=== PATIENT | female | born 1980 | race Caucasian/White ===

== ENCOUNTER 2025-03-26 15:00 | Emergency (ER) | payer BC, SELFPAY ==
[2025-03-26 15:01] VITALS: BP 166/98
[2025-03-26 15:15] LABS: Hematocrit 37.7 % (37.0-47.0); Hemoglobin 13.1 g/dL (12.0-16.0); Mean Corp Hgb Conc. 34.7 g/dL (33.0-37.0); Mean Corpuscular Volume 82.9 fL (81.0-99.0); Nucleated Red Blood Cells % 0 %; Platelet Count 167 10^3/uL (130-400); Red Cell Dist. Width 11.9 % (11.5-14.5)
[2025-03-26 15:32] LABS: ALT (SGPT) 22 U/L (0-35); AST (SGOT) 24 U/L (14-36); Albumin 4.0 g/dl (3.5-5.0); Alkaline Phosphatase 64 U/L (38-126); Blood Urea Nitrogen 14 mg/dl (7-17); Calcium 9.0 mg/dl (8.4-10.2); Carbon Dioxide 25 mmol/L (22-30); Chloride 108 mmol/L (98-107); Glucose 126 mg/dl (70-99); Potassium 3.8 mmol/L (3.5-5.1); Sodium 139 mmol/L (135-145); Total Protein 6.8 g/dl (6.3-8.2); eGFR > 60.00
[2025-03-26 16:05] VITALS: BP 162/101
--- NOTE | 2025-03-26 16:19 | ED.GENMED ---
History of Present Illness
General
Chief Complaint: Dizziness
Time Seen by Provider: 03/26/25 16:04
Nursing documentation reviewed up to this point in time: agreed with
History of Present Illness
History of Present Illness:
45-year-old female presents to the ER via EMS for evaluation after near syncopal event that occurred after lunch today. Patient states that she had a turkey rosenbaum sandwich with her family. She started to feel unwell while they were still seated at
the table. She describes a feeling of racing heartbeat and that she was going to faint. She states that she saw her family physician yesterday because she has been experiencing difficulty with dyspepsia and belching after eating. Multiple family
members have had to have her gallbladder out including her brother.
Phy Exam
Physical Exam
Physical Exam:
Patient is awake, alert, appears in no acute distress, head is NCAT, PERRL, EOMI mucous membranes moist, conjunctiva pink, sclera anicteric, heart regular rate and rhythm without murmurs or ectopy, lungs are clear to auscultation without wheezes
rales or rhonchi, no JVD, abdomen is soft and nontender on palpation, extremities without edema, 2+ DP pulses present symmetric bilateral feet GCS is 15
Course
Orders/Labs/Results
Orders:
Orders
03/26/25 15:04
EKG [Electrocardiogram (*1)] Urgent
Reason for Study: Palpitations
03/26/25 15:05
EKG- Treatment ONCE
03/26/25 15:07
Complete Blood Count/With Diff Urgent
Comprehensive Metabolic Panel Urgent
TSH Reflex To Free T4 Urgent
03/26/25 16:18
US Abdomen Limited Urgent
Comment:
Reason For Exam: dyspepsia, abdominal pain
03/26/25 16:20
0.9% Sodium Chloride 1000 ml [Nss] 1,000 ml IV BOLUS
CR Chest - 2 Views Urgent
Comment:
Reason For Exam: syncope
Abnormal Lab Results
03/26/25
15:07
WBC 3.5 L 10^3/uL
(4.8-10.8)
Absolute Lymphs (auto) 1.1 L 10^3/uL
(1.2-3.4)
Immature Gran % 0.6 H %
(0-0.5)
Monocytes % 10.4 H %
(1.7-9.3)
Eosinophils % 6.1 H %
(0-6)
Chloride 108 H mmol/L
(98-107)
Creatinine 1.1 H mg/dL
(0.6-1.0)
Glucose 126 H mg/dl
(70-99)
03/26/25 15:07
03/26/25 15:07
CBC reassuring with normal hemoglobin. Kidney function preserved. Electrolytes without significant dyscrasia.
Vital Signs
Initial and Last Documented VS:
Initial Vital Signs
Temp Pulse Resp BP Pulse Ox
98.9 F 76 18 166/98 98
03/26/25 15:01 03/26/25 15:01 03/26/25 15:01 03/26/25 15:01 03/26/25 15:01
Last Documented Vital Signs
Temp Pulse Resp BP Pulse Ox
98.3 F 76 16 170/102 100
03/26/25 18:10 03/26/25 18:10 03/26/25 18:10 03/26/25 18:10 03/26/25 18:10
*Radiology
Radiology exam reviewed: preliminary read by ED provider (I independently viewed and interpreted two-view chest x-ray showing no acute process, no infiltrates. I reviewed radiology interpretation which is in agreement)
*Pulse Oximetry
SaO2: 98
Oxygen Mode of Delivery: Room air
Patient hypoxic: no
*EKG
Interpreted by ED Provider?: Yes (I independently and interpreted twelve-lead EKG showing normal sinus rhythm, rate 82, normal axis, normal levels, this is a normal EKG without any prior for comparison)
*Loader Operator/Ground Leader Interpretation
Rate: normal (I independently viewed and interpreted rhythm strip showing normal sinus rhythm, no ectopy)
*Critical Care Note
Total Time (30-74mins, 75-104mins- exclusive of procedures): Not Applicable
Update Note
Update Note:
I discussed with patient feeling numbers present at bedside likely vasovagal etiology of syncope. I discussed with them additional workup in the ER including gallbladder ultrasound, chest x-ray, treatment with IV fluids and very reassuring EKG.
They agree with plan at current.
late entry-patient feeling better after additional IV fluids although she still feels slightly sleepy, likely related to droperidol administered prior to arrival. I discussed with patient and failed members present bedside very reassuring workup,
no evidence for acute worrisome process. I discussed with her most likely etiology of symptoms related to vasovagal origin, possibly related to her untreated GERD. I discussed with her need to initiate PPI and have close outpatient follow-up with
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 Patient felt comfortable with plan and had no questions prior to leaving department. She was able to ambulate out with a steady gait.
ED Attending Note
-
Portions of this chart may have been created with voice recognition software.� Occasional wrong word or��sound alike� substitutions may have occurred due to the inherent limitations of voice recognition software.
Discharge Plan
Departure
Patient Disposition: Home (Routine Discharge)
Date of Disposition: 03/26/25
Time of Disposition: 18:12
Patient with high blood pressure during this ER visit?: Yes
Discharge Problem:
Syncope
Instructions: Near Fainting (DC), BLOOD PRESSURE
Referrals:
UNKNOWN - PT DOES,NOT KNOW [Family Provider]
Activity Restrictions/Additional Instructions:
Encourage fluids. Please take antacid medication as prescribed. Gastro follow-up with them for endoscopy as scheduled. Please also follow-up with your primary care physician for reevaluation of your blood pressure. Follow a bland diet until you
are seen in follow-up. Please return to the ER for any concerns
Interventions
Interventions:
*Risk Screen - Suicide Last Done: 03/26/25 15:01
*General Assessment Last Done: 03/26/25 15:01
*Neglect/Abuse Screening Last Done: 03/26/25 15:01
*ED- Fall Risk Assessment Last Done: 03/26/25 15:01
*ED COVID-19 Vaccine History Last Done: 03/26/25 15:01
*Nursing Disposition Last Done: 03/26/25 18:18
ED- Neurological Assessment Last Done: 03/26/25 16:37
Discharge Date and Time
Discharge Date/Time: 03/26/25 18:25
Print Language: CROATIAN
[2025-03-26] MEDS: NSS 1000 IV (16:34)
[2025-03-26 16:35] VITALS: BMI 23.6
--- NOTE | 2025-03-26 16:39 | PTCARENOTE ---
patient reports while eating lunch [employer] she had an episode of dizziness ad palpitations, she sat on the floor and put her head between her legs, patient did not have a syncopal episode. patient reports she has never felt like this before but symptoms
have since improved. patient denies abdominal pain, but reports she saw a GI doctor yesterday who advised her to get ultrasound of her abdomen done to check for gallstones.
[2025-03-26 18:10] VITALS: BP 170/102
== END 2025-03-26 18:25 | disposition home or self-care (01) ==
LOC: EMR 15:00
PROVIDERS: Student in an Organized Health Care Education/Training Program; EMERGENCY PHYSICIAN Emergency Medicine
DX: R55 Syncope and collapse (principal); R10.13 Epigastric pain
CPT/HCPCS: 96360; 96361; 99285; 71046; 76705; 80053; 84443; 85025; 93005